=== PATIENT | female | born 1955 | race Caucasian/White ===

== ENCOUNTER 2021-04-27 18:40 | Observation (INO) ==
[~2021-04-27 18:40] MED LIST: WARFARIN 5 MG TABLET PO SCH
[2021-04-27] MEDS ORDERED: IOPAMIDOL 100 ML BOTTLE IV ONE (18:41)
[2021-04-27] MEDS ORDERED: 0.9 % SODIUM CHLORIDE 1,000 ML IV ONE ×2 (19:01→21:57)
[2021-04-27 19:30] LABS: POC Blood Urea Nitrogen 34 mg/dL (6-20); POC CO2 24 mmol/L (22-30); POC Calcium, Ionized 1.18 mmEq/L (1.16-1.32); POC Chloride 97 mEq/L (96-108); POC Creatinine 1.2 mg/dL (0.6-1.2); POC Glucose, Random 115 mg/dL (70-105); POC Hematocrit 35 % (36-48); POC Potassium 5.5 mEql/L (3.3-5.1); POC Sodium 130 mEq/L (133-145)
[2021-04-27 19:58] LABS: Basophils # (Auto) 0.04 K/mcL (0.00-0.30); Basophils % (Auto) 0.3 % (0.0-2.0); Eosinophils % (Auto) 1.3 % (0.0-7.0); Hematocrit 35.8 % (34.1-44.9); Hemoglobin 11.7 g/dL (11.2-15.7); Mean Cell Volume 99.2 fL (80.0-100.0); Mean Corpuscular HGB Conc 32.7 g/dL (31.0-36.0); Mean Platelet Volume 11.1 fL (7.4-10.4); Monocytes # (Auto) 1.56 K/mcL (0.10-0.90); Monocytes % (Auto) 10.4 % (1.0-12.0); Platelet Count 215 K/mcL (140-440); RBC 3.61 M/mcL (3.59-5.38)
[2021-04-27] MEDS ORDERED: cefTRIAXone 1 GM VIAL IV ONE (20:51)
[2021-04-27] MEDS ORDERED: VANCOMYCIN 1,500 MG in 0.9 % SODIUM CHLORIDE 500 ML IV ONE (20:51)
[2021-04-27] MEDS ORDERED: ACETAMINOPHEN 325 MG TABLET PO PRN ×2 (23:15→23:22)
[2021-04-27] MEDS ORDERED: oxyCODONE HCL 5 MG TABLET PO PRN (23:15)
[2021-04-27] MEDS ORDERED: 0.45 % SODIUM CHLORIDE 1,000 ML IV SCH (23:15)
[2021-04-27] MEDS ORDERED: ONDANSETRON 4 MG/2 ML VIAL IV PRN ×2 (23:15→23:22)
[2021-04-27] MEDS ORDERED: FLEETS ADULT ENEMA PR PRN (23:22)
[2021-04-27] MEDS ORDERED: BENZOCAINE/MENTHOL 1 LOZENGE PO PRN (23:22)
[2021-04-27] MEDS ORDERED: HYDROcodone/APAP 10/325MG TABLET PO PRN ×2 (23:22→23:28)
[2021-04-27] MEDS ORDERED: MAGNESIUM HYDROXIDE 30 ML ORAL.SUSP PO PRN (23:22)
[2021-04-27] MEDS ORDERED: HYDROmorphone 1 MG/ML SYRINGE IV PRN (23:22)
[2021-04-27] MEDS ORDERED: BISACODYL 10 MG SUPP.RECT PR PRN (23:22)
[2021-04-27] MEDS ORDERED: TEMAZEPAM 15 MG CAPSULE PO PRN (23:22)
--- NOTE | 2021-04-27 23:24 | Emergency Department Note ---
HPI General Chief complaint: Altered Mental Status Stated complaint: Confusion & anxiety Time Seen by Provider: 04/27/21 18:53 Source: patient and family Mode of arrival: ambulatory Limitations: no limitations History of Present Illness HPI Narrative: Narrative: Patient is a 65-year-old female status post total knee replacement on Saturday who presents with chief complaint of altered mental status/confusion. states that patient was discharged home 2 days ago, and ever since then has just been slowly not acting like herself. She had some shaking episodes, does not appear to be getting up very often or moving around very much, and is getting confused at times. He states this is not normal for her and he is concerned something is going on. Otherwise denies any other significant symptoms such as fever, headache, cough, shortness of breath, chest pain, nausea, vomiting, abdominal pain, changes in bowel movements or urinary symptoms. Patient states that her leg is not bothering her, and denies any complaints at this time. She is alert and oriented x3. Related Data Home Medications Medication Instructions Recorded Confirmed Pro 5 (probiotic) 1 cap PO HS 12/06/14 04/19/21 cholecalciferol (vitamin D3) 125 5,000 unit PO DAILY tab 12/06/14 04/19/21 mcg (5,000 unit) tablet lithium carbonate 300 mg capsule 300 mg PO HS cap 12/06/14 04/19/21 divalproex 125 mg tablet,delayed 250 mg PO DAILY tab 06/17/18 04/27/21 release lorazepam 0.5 mg tablet 0.25 - 0.5 mg PO HS 06/17/18 04/27/21 risperidone 0.25 mg tablet 0.25 - 0.5 mg PO HS tab 06/17/18 04/27/21 digestive enzymes 1 tab PO TID 04/19/21 04/19/21 diphenhydramine HCl 25 mg tablet 25 mg PO DAILYP PRN 04/19/21 04/19/21 gabapentin 300 mg capsule 300 mg PO HS 04/19/21 04/19/21 levothyroxine 50 mcg tablet 50 mcg PO ACB 04/19/21 04/19/21 loratadine 10 mg tablet (Claritin) 10 mg PO DAILY 04/19/21 04/19/21 magnesium citrate 100 mg tablet 150 mg PO DAILYP PRN MDD ] 04/19/21 04/19/21 divalproex 125 mg tablet,delayed 375 mg PO HS 04/27/21 04/27/21 release Previous Rx's Medication Instructions Recorded aspirin 81 mg tablet,delayed 81 mg PO BID #60 tab 04/24/21 release (Ecotrin Low Strength) docusate sodium 100 mg capsule 100 mg PO BID #60 cap 04/24/21 hydrocodone 10 mg-acetaminophen 1 - 2 tab PO Q4H PRN #75 tab 04/24/21 325 mg tablet Allergies Allergy/AdvReac Type Severity Reaction Status Date / Time Celery Allergy Severe Anaphylaxis Verified 04/27/21 18:42 milk Allergy Severe Anaphylaxis Verified 04/27/21 18:42 peanut Allergy Severe Anaphylaxis Verified 04/27/21 18:42 wheat Allergy Severe Anaphylaxis Verified 04/27/21 18:42 gluten Allergy Mild Anaphylaxis Verified 04/27/21 18:42 levofloxacin Allergy Mild Difficulty Verified 04/27/21 18:42 Breathing meperidine [From Demerol] Allergy Mild Other Verified 04/27/21 18:42 aspirin AdvReac Intermediate dyspepsia Verified 04/27/21 18:42 morphine AdvReac Mild Agitated Verified 04/27/21 18:42 Other food allergies Allergy Mild Other Uncoded 04/19/21 10:02 Review of Systems ROS ROS Narrative: Narrative: All systems ED: reviewed and negative except as stated. [facility] Narrative Patient History Narrative: Narrative: Medical/Surgical/Family History All Active Problems (Updated 04/27/21 @ 23:23 by Polo Quinonez DO) Sepsis (Acute) Tachycardia (Acute) Elevated WBC count (Acute) Medicare annual wellness visit, subsequent (Acute) Osteoporosis (Chronic) Bursitis of right hip (Acute) Scleral hemorrhage of left eye (Acute) Fibromyalgia (Chronic) Bipolar disorder (Chronic) Eustachian tube dysfunction (Acute) History of knee replacement procedure of right knee (Chronic) Pain, joint, ankle and foot (Chronic) History of total right knee replacement (Chronic) Trochanteric bursitis, right hip (Chronic) Unilateral primary osteoarthritis, right knee (Chronic) Unilateral primary osteoarthritis, right hip (Chronic) Allergic reaction to chemical substance (Acute) History of tonsillectomy (Chronic) History of lumbar fusion (Chronic) History of colonoscopy (Chronic) History of cholecystectomy (Chronic) History of cataract surgery (Chronic) History of breast biopsy (Chronic) History of appendectomy (Chronic) Closed fracture of wrist (Chronic) Scheuermann's disease (Chronic) Pain in limb (Chronic) Osteoarthritis (Chronic) Obesity (Chronic) Hypothyroidism, acquired (Chronic) Hyponatremia (Chronic) Hypokalemia (Chronic) Hypertension, essential (Chronic) Hyperlipidemia (Chronic) Situational depression (Chronic) Bipolar disorder (Chronic) Allergy (Chronic) Back pain (Chronic) Medical History Allergic reaction to chemical substance Allergy Back pain 2001; Lumbar DDD Bipolar disorder Bipolar disorder Closed fracture of wrist 1967; right wrist Fibromyalgia Hyperlipidemia Hypertension, essential Hypokalemia Hyponatremia Hypothyroidism, acquired Medicare annual wellness visit, subsequent Obesity Osteoarthritis Left knee Osteoporosis Pain in limb 12/14/2013. Dr. Jose Alfredo Merrill; Right Pain, joint, ankle and foot Scheuermann's disease Situational depression Trochanteric bursitis, right hip Unilateral primary osteoarthritis, right hip Unilateral primary osteoarthritis, right knee Surgical History History of appendectomy 07/2013 History of blepharoplasty History of breast biopsy 1994 History of cataract surgery 04/14/2014; Dr. Engel History of cholecystectomy History of colonoscopy 2007 History of knee replacement procedure of right knee History of lumbar fusion 2001; Lumbar spinal fusion History of tonsillectomy History of total right knee replacement 06/27/2016 Family History Mother Alzheimer's disease Malignant neoplasm of colon Iliostomy Transient cerebral ischemia Sister Asthma Aunt Bipolar affective disorder 2 Aunts and 4 Cousins Father Essential hypertension Social History Smoking Status: Never smoker Alcohol Intake Frequency: does not drink Substance Use: does not use Exam Narrative Narrative: Narrative: Patient is laying in bed, answering questions normally and appropriately. She does not appear to be in acute discomfort or distress. She does not appear to be confused. General Limitations: no limitations Head Head: Present atraumatic and normocephalic Eye Eye: Present normal appearance, PERRL and EOMI; Absent scleral icterus or conjunctival injection ENT ENT: Present normal oropharynx and mucous membranes moist Neck Neck: Present full ROM and trachea midline; Absent tenderness or lymphadenopathy Chest Chest: Present symmetric chest wall rise Respiratory Respiratory: Present normal lung sounds bilaterally; Absent respiratory distress, rales/crackles, wheezes, stridor or accessory muscle use Cardiovascular Cardiovascular: Present regular rate and normal rhythm; Absent systolic murmur or diastolic murmur Adbominal Abdominal: Present soft; Absent tenderness, guarding, rebound, rigidity or mass Extremities Extremities: Absent pedal edema, pretibial edema or calf tenderness Expanded Lower Extremity Leg image: 1. Dressing was taken down with some small amount of dried blood on the dressing. Suture device is intact with no signs of wound dehiscence. There is extensive ecchymosis around the knee likely secondary to recent surgery. There is some erythema above the knee concerning for possible cellulitis. No significant tenderness to palpation. Neurovascular intact distally. Back Back: Absent CVA tenderness (R), CVA tenderness (L) or spinous process tenderness Neurological Neurological: Present alert and oriented X3 Psychiatric Psychiatric: Present normal affect and normal mood Skin Skin: Present warm (WNL) and dry Course Vital Signs Vital signs: Vital Signs Temperature 98.0 F 04/27/21 18:42 Pulse Rate 123 H 04/27/21 18:42 Respiratory Rate 18 04/27/21 18:42 Blood Pressure 154/87 04/27/21 18:42 Pulse Oximetry (%) 96 04/27/21 18:42 Temperature 99.1 F H 04/27/21 20:07 Pulse Rate 123 H 04/27/21 23:07 Respiratory Rate 19 04/27/21 22:18 Blood Pressure 137/75 04/27/21 23:01 Pulse Oximetry (%) 97 04/27/21 23:07 [facility] Narrative Medical decision making narrative: Narrative: Patient is a 65-year-old female present with chief complaint of confusion. At this time patient appears to be alert and oriented x3, vital signs initially revealed a tachycardia in the 120s. She subsequently also started develop fevers here in the emergency department as high as 101, making a concern for possible infectious process. She was given 2 L of IV fluids which did not improve her heart rate, and blood work came back with elevation of her white blood count at 15 with a left shift. Urinalysis was unremarkable, chest x-ray nonacute. Her knee does show signs consistent with recent surgery, so it is difficult to fully evaluate for infection. There is a concern that this could be the source of infection given her recent surgery so orthopedic surgery was consulted. Dr. Newman who did the surgery for the patient a few days ago and I discussed the case, and his concern for actual infection was quite low but he came in to evaluate the patient at bedside. He did tap the knee which he stated was unimpressive, but plan to admit the patient for IV fluid hydration and likely dehydration as a cause of her symptoms here today. Patient is agreeable to the plan at this time is no further concerns or questions. Of note due to the concern for possible sepsis blood culture were drawn as well as IV antibiotics started earlier in the course of the hospital visit. Lab Data Result diagrams: 04/27/21 19:18 Labs: Lab Results 04/27/21 04/27/21 Range/Units 19:18 19:18 WBC 15.0 H (4.5-11.0) K/mcL RBC 3.61 (3.59-5.38) M/mcL Hgb 11.7 (11.2-15.7) g/dL Hct 35.8 (34.1-44.9) % POC Hct 35 L (36-48) % MCV 99.2 (80.0-100.0) fL MCH 32.4 (26.0-34.0) pg MCHC 32.7 (31.0-36.0) g/dL RDW 12.0 (11.5-14.5) % Plt Count 215 (140-440) K/mcL MPV 11.1 H (7.4-10.4) fL Neut % (Auto) 80.0 H (38.0-78.0) % Lymph % (Auto) 8.0 L (15.5-49.0) % Kay % (Auto) 10.4 (1.0-12.0) % Eos % (Auto) 1.3 (0.0-7.0) % Baso % (Auto) 0.3 (0.0-2.0) % Lymph # (Auto) 1.20 L (1.50-4.80) K/mcL Kay # (Auto) 1.56 H (0.10-0.90) K/mcL Eos # (Auto) 0.20 (0.00-0.70) K/mcL Baso # (Auto) 0.04 (0.00-0.30) K/mcL Absolute Neutrophils 12.03 H (1.80-8.00) K/mcL POC Sodium 130 L (133-145) mEq/L POC Potassium 5.5 H (3.3-5.1) mEql/L POC Chloride 97 (96-108) mEq/L POC Total CO2 24 (22-30) mmol/L POC BUN 34 H (6-20) mg/dL POC Creatinine 1.2 (0.6-1.2) mg/dL POC Glucose 115 H (70-105) mg/dL POC WB Ioniz Calcium 1.18 (1.16-1.32) mmEq/L ED POC Tests ED POC Tests: MARIE - Influenza A Negative MARIE - Influenza B Negative MARIE - SARS Antigen Negative CC TIME Critical Care Time Critical Care Time: Yes Total Critical Care Time: 60 Discharge Plan Patient/Caregiver Discharge Instructions Pt seen by DIESEL ENGINE SPECIALIST/PA only: No Clinical Impression: Sepsis, Tachycardia, Elevated WBC count Patient Disposition: Xfer As Outpt/Obs ([facility]) Follow up with: Soren Arcos PA-C [Primary Care Provider] - Prescriptions: No Action divalproex 125 mg tablet,delayed release (DR/EC) 250 mg PO DAILY 0RF Label Comments: 250mg qam and 375mg qhs ; Rx Instructions: Takes two Tabs in am 250mg risperidone 0.25 mg tablet 0.25 - 0.5 mg PO HS 0RF lorazepam 0.5 mg tablet 0.25 - 0.5 mg PO HS 0RF cholecalciferol (vitamin D3) 5,000 unit tablet 5,000 unit PO DAILY 0RF Pro 5 (probiotic) 1 cap PO HS 0RF lithium carbonate 300 mg capsule 300 mg PO HS 0RF digestive enzymes Tablet 1 tab PO TID 0RF Rx Instructions: with meals levothyroxine 50 mcg Tablet 50 mcg PO ACB 0RF diphenhydramine HCl 25 mg Tablet 25 mg PO DAILYP PRN (Reason: ANAPHYLACTIC SYMPTOMS) 0RF loratadine [Claritin] 10 mg Tablet 10 mg PO DAILY 0RF magnesium citrate 100 mg Tablet 150 mg PO DAILYP MDD ] PRN (Reason: Constipation) 0RF gabapentin 300 mg capsule 300 mg PO HS 0RF hydrocodone-acetaminophen 10-325 mg tablet 1 - 2 tab PO Q4H PRN (Reason: pain) Qty: 75 0RF aspirin [Ecotrin Low Strength] 81 mg tablet,delayed release (DR/EC) 81 mg PO BID Qty: 60 0RF docusate sodium 100 mg capsule 100 mg PO BID Qty: 60 0RF divalproex 125 mg Tablet,Delayed Release (Dr/Ec) 375 mg PO HS 0RF Rx Instructions: Takes three tabs at night 375mg
--- NOTE | 2021-04-28 00:30 | Consultation ---
DATE OF CONSULTATION: 04/27/2021 EMERGENCY ROOM CONSULTATION The patient had surgery on Saturday of this week, 3 days ago. CHIEF COMPLAINT: She presents with a chief complaint of tremors or shaking, difficulty with ambulation, and some mental status changes, but she is very conversant at this point. She classifies her pain about 5/10, but at times it can be worse, but she is mobile, able to ambulate. She is taking her pain pills, hydrocodone 2 tablets every 4 hours, maximum dose that she can take. REVIEW OF SYSTEMS: She has no chest pain. No shortness of breath. Pain in the knee and tremors. PAST MEDICAL HISTORY: Quite significant for the patient having bipolar disorder with multiple psychotic medications, some of these medications are lithium, Ativan, and Benadryl. She was seen in 07/2019 where her chief complaint was ER visit for tremors at [facility]. At that point, these tremors were intention tremors that seemed to be aggravated with activities. Her other medical problems include fibromyalgia, Scheuermann's disease, osteoarthritis, obesity, hypothyroidism, hyponatremia, chronic hypokalemia, hyperlipidemia, and chronic back pain. PAST SURGICAL HISTORY: Significant for a total knee replacement as of Saturday of this week, 3 days ago. She had a total knee on her other side on 06/27/2016. She had a blepharoplasty, tonsillectomy, lumbar fusion, colonoscopy, cholecystectomy, breast biopsy, and appendectomy. FAMILY HISTORY: Alzheimer's, transient cerebral ischemia, sister had asthma. SOCIAL HISTORY: She does have a sister that is helping her at home. MEDICATIONS: Her medications are noted above. She does take risperidone, lithium is 300 mg once a day, gabapentin, and the Benadryl was noted, recently add is a narcotic and she takes topiramate 25 mg p.o. every day. ALLERGIES: TOO MANY MEDICATIONS. WHEAT, MILK, GLUTEN, AND ASPIRIN. PHYSICAL EXAMINATION: GENERAL: The patient is alert, cooperative, and gives an excellent history. She is shaking, but when she starts talking and really deep thinking, she stops shaking. She has no respiratory distress. Normal respiratory effort and rate. LUNGS: Clear to auscultation bilaterally. CARDIOVASCULAR: Tachy and about 100 with a regular rhythm. No murmurs. NEUROLOGIC: She is shaking. She is alert, cooperative. She moves her feet without difficulty. EXTREMITIES: There is a lot of swelling about the left knee with ecchymosis and bruising consistent with the surgery 3 days ago. PSYCHIATRIC: She appears to be in good condition. IMAGING DATA: She had a CT scan of the chest to rule out PEs and we are waiting for the reading of that. ASSESSMENT: Otherwise, is a total knee arthroplasty 3 days ago with normal bruising. Her laboratories do show a high white count, which are consistent with the above-mentioned surgery. No significant shift that would make me think there are any infections going on. Her low-grade fever consistent with atelectasis. She is dehydrated with a BUN of 37, creatinine is elevated as well. With this, I have encouraged hydration. She is getting 500 mL of normal saline. We will get her to drink and eat, ambulate, and make sure she is able to go home in the morning. I had a long talk with the patient, changing out how she is taking the medications is critical as well. RBH:tho Job ID: [id number] Doc ID: [id number] Jose D Ramos MD
[2021-04-28] MEDS: 0.45 % SODIUM CHLORIDE 1,000 ML IV SCH ×3 (01:00→09:30)
[2021-04-28] MEDS: 0.9 % SODIUM CHLORIDE 10 ML SYRINGE IV SCH ×4 (04:33→13:03)
--- NOTE | 2021-04-28 04:54 | XRay Report ---
CLINICAL INFORMATION: Tachycardia COMPARISON: None. TECHNIQUE: Portable FINDINGS: The heart size, mediastinum and pulmonary vessels are unremarkable. The lungs are clear. There are no effusions. The bones and soft tissues are within normal limits. IMPRESSION: Normal chest. Interpreted and Authenticated by: Roberto Betancourt 04/28/21
--- NOTE | 2021-04-28 05:17 | Cat Scan Report ---
CLINICAL INFORMATION: Postop tachycardia COMPARISON: None. TECHNIQUE: 80ml of Isovue-370 were injected intravenously. Using SmartPrep to maximize pulmonary artery opacification, .625mm helical slices were obtained from the lung apices through the lung bases. Following reconstruction, 2.5 mm sagittal, coronal, and axial reformations were processed. The exam was reviewed at mediastinal, lung, and bone windows. The exam was performed using radiation dose optimization techniques including, but not limited to, automated exposure control, adjustment of the mA and/or kV according to patient size and use of iterative reconstruction technique. FINDINGS: Pulmonary parenchymal windows show a 6 mm subpulmonic lymph node adjacent to the major fissure in the right lower lobe on image 67. There is minor scarring in the medial segment right middle lobe. There are no infiltrates. Pleural spaces are normal. Mediastinal windows show the heart is grossly normal in size and configuration. The pulmonary arteries are normal diameter and well-opacified without evidence of embolus. Thoracic aorta is also normal diameter and well-opacified. There is no adenopathy in the mediastinal, hilar or axillary regions. Esophagus is grossly normal. The thyroid is unremarkable. Bones and soft tissues the chest wall are normal. Images through the superior abdomen are unremarkable. IMPRESSION: Normal CT pulmonary angiogram Interpreted and Authenticated by: Roberto Betacnourt 04/28/21
[2021-04-28] MEDS: KETOROLAC 15 MG/ML VIAL IV SCH ×3 (05:45→12:01)
[2021-04-28] MEDS ORDERED: KETOROLAC 15 MG/ML VIAL ONE (05:46)
[2021-04-28] MEDS ORDERED: LEVOTHYROXINE 50 MCG TABLET PO SCH (07:30)
[2021-04-28] MEDS ORDERED: diphenhydrAMINE 25 MG CAPSULE PO PRN (07:37)
[2021-04-28] MEDS ORDERED: DOCUSATE SODIUM 100 MG CAPSULE PO SCH ×2 (09:00)
[2021-04-28] MEDS ORDERED: NON FORMULARY MEDICATION 1 DOSE MISCELL (Aspirin [Ecotrin Low Strength] 81 mg tablet,delay PO SCH (09:00)
[2021-04-28] MEDS ORDERED: LORATADINE 10 MG TABLET PO SCH (09:00)
[2021-04-28] MEDS ORDERED: VITAMIN D3 5,000 UNIT TABLET PO SCH (09:00)
[2021-04-28] MEDS ORDERED: DIVALPROEX 125 MG CAP.SPRINK PO SCH ×2 (09:00→21:00)
--- NOTE | 2021-04-28 09:04 | Orthopedic Progress Note ---
SUBJECTIVE Subjective Patient information: Note initiated : 04/28/21 at 8:57 am Service Date, if different from initiated Date: [] Patient: Sharon Leal 65 y/o F admitted on 04/27/21 for Confusion & anxiety. Chief Complaint: [alert and oriented and has always been so since my evaluation last night and no cp no sob and no tremor] Principal diagnosis: tremors and anxiety Constitutional Vitals: Vital Signs Temp Pulse Resp BP Pulse Ox 97.6 F 106 H 16 101/58 92 04/28/21 07:24 04/28/21 04:00 04/28/21 07:24 04/28/21 07:24 04/28/21 07:24 Period Temp Pulse Resp BP Sys/Hawkins Pulse Ox Last 24 Hr 97.6 F-99.5 F 106-128 13-20 100-164/56-115 90-99 Intake and Output 04/27/21 04/28/21 04/28/21 21:59 05:59 13:59 Intake Total 1000 2120 Output Total 2900 Balance 1000 -780 Weight 215 lb 212 lb Intake & Output: Intake & Output 04/27/21 04/28/21 04/28/21 21:59 05:59 13:59 Intake Total 1000 2120 Output Total 2900 Balance 1000 -780 Weight 215 lb 212 lb Intake: IV 1000 1500 Sodium Chloride 0.9% 1,000 ml @ 1000 1000 Wide Open IV BOLUS ONE Rx#: [id number] Vancomycin 1,500 mg In Sodium 500 Chloride 0.9% 500 ml @ 333.3 mls/hr IV ONCE ONE Rx#: [id number] Oral 620 Output: Urine Catheter Amount 2900 Other: Urine Appearance Clear Uretheral (Bryant) Clear Clear Urine Color Pale Uretheral (Bryant) Pale Bright Yellow Urine Odor Normal General appearance: average body habitus, cooperative and no acute distress Head Head exam: Present normal inspection Eye Eye exam: Present EOMI Neurological Exam Neurological exam: Present abnormal gait, alert, CN II-XII intact and oriented X3 Expanded Neurological Exam Speech: Present fluid speech Psychiatric Psychiatric exam: Present normal affect OBJ DATA Labs CBC & Chem 7: 04/27/21 19:18 Labs: Abnormal Lab Results 04/27/21 04/27/21 19:18 19:18 WBC 15.0 H POC Hct 35 L MPV 11.1 H Neut % (Auto) 80.0 H Lymph % (Auto) 8.0 L Lymph # (Auto) 1.20 L Norman # (Auto) 1.56 H Absolute Neutrophils 12.03 H POC Sodium 130 L POC Potassium 5.5 H POC BUN 34 H POC Glucose 115 H Meds: Medications Acetaminophen (Acetaminophen 325 Mg Tablet) 650 mg PO Q6HP PRN; Protocol PRN Reason: Per Pain Protocol/Fever > 101 Acetaminophen (Acetaminophen 325 Mg Tablet) 650 mg PO Q6HP PRN; Protocol PRN Reason: Per Pain Protocol/Fever > 101 Hydrocodone Bitart/Acetaminophen (Hydrocodone/Apap 10/325mg Tablet) 1 - 2 tab PO Q4HP PRN; Protocol PRN Reason: Per Pain Protocol Bisacodyl (Bisacodyl 10 Mg Supp.Rect) 10 mg WI Q2-3DAYS PRN PRN Reason: Constipation Diphenhydramine HCl (Diphenhydramine 25 Mg Capsule) 25 mg PO DAILYP PRN PRN Reason: ANAPHYLACTIC SYMPTOMS Divalproex Sodium (Divalproex 125 Mg Cap.Sprink) 375 mg PO HS BE Divalproex Sodium (Divalproex 125 Mg Cap.Sprink) 250 mg PO DAILY BE Docusate Sodium (Docusate Sodium 100 Mg Capsule) 100 mg PO BID BE Gabapentin (Gabapentin 300 Mg Capsule) 300 mg PO HS BE Hydromorphone HCl (Hydromorphone 1 Mg/Ml Syringe) 0.5 - 2 mg IV Q2HP PRN; Protocol PRN Reason: Per Pain Protocol Sodium Chloride (Sodium Chloride 0.45%) 1,000 mls @ 100 mls/hr IV .Q10H [facility] Last Admin: 04/28/21 01:00 Dose: 100 mls/hr Documented by: Ketorolac Tromethamine (Ketorolac 15 Mg/Ml Vial) 15 mg IV Q6 [facility] Stop: 04/29/21 18:01 Last Admin: 04/28/21 05:46 Dose: 15 mg Documented by: Lactobacillus Rhamnosus (Lactobacillus 1 Capsule) 1 cap PO HS BE Levothyroxine Sodium (Levothyroxine 50 Mcg Tablet) 50 mcg PO ACB [facility] Last Admin: 04/28/21 07:53 Dose: 50 mcg Documented by: [place] Carbonate ([place] Carbonate 150 Mg Capsule) 300 mg PO HS BE Loratadine (Loratadine 10 Mg Tablet) 10 mg PO DAILY BE Lorazepam (Lorazepam 0.5 Mg Tablet) 0.25 - 0.5 mg PO HS [facility] Magnesium Hydroxide (Magnesium Hydroxide 30 Ml Oral.Susp) 30 ml PO BIDP PRN PRN Reason: Constipation Non-Formulary Medication (Aspirin [Ecotrin Low Strength]) 81 mg PO BID BE Ondansetron HCl (Ondansetron 4 Mg/2 Ml Vial) 4 mg IV Q4HP PRN; Protocol PRN Reason: Nausea And Vomiting Ondansetron HCl (Ondansetron 4 Mg/2 Ml Vial) 4 mg IV Q4HP PRN PRN Reason: Nausea And Vomiting Oxycodone HCl (Oxycodone Hcl 5 Mg Tablet) 1 - 2 mg PO Q4HP PRN; Protocol PRN Reason: Per Pain Protocol Digestive Enzymes (Tablet) 1 dose PO TID [facility] Risperidone (Risperidone 0.25 Mg Tablet) 0.25 - 0.5 mg PO HS [facility] Sodium Biphosphate/Sodium Phosphate (Fleets Adult Enema) 1 dose WI Q3-4DAYS PRN PRN Reason: Constipation Sodium Chloride (0.9 % Sodium Chloride 10 Ml Syringe) 10 ml IV Q8 [facility] Last Admin: 04/28/21 04:33 Dose: Not Given Documented by: Sodium Chloride (0.9 % Sodium Chloride 10 Ml Syringe) 10 ml IV Q8 [facility] Last Admin: 04/28/21 04:34 Dose: Not Given Documented by: Temazepam (Temazepam 15 Mg Capsule) 15 mg PO HSP PRN PRN Reason: Insomnia Throat Lozenges (Benzocaine/Menthol 1 Lozenge) 1 lozenge PO PRN PRN PRN Reason: Sore Throat Vitamin D (Vitamin D3 5,000 Unit Tablet) 5,000 unit PO DAILY [facility] Warfarin Sodium (Warfarin 5 Mg Tablet) 5 mg PO DAILY@1400 [facility] Last Admin: 04/28/21 04:30 Dose: Not Given Documented by: Impressions Impression: much improved and ambulating well and tremor now stopped A/P Narrative A/P Narrative: dc home and will wait on lithium level and if normal or high adjust accordingly. Time Spent With Patient Time: Total time spent is greater than 50% in coordination of care (as documented) at patient's floor/unit and/or counseling patient: Total time spent with greater than 50% in coordination of care (as documented) at patient's floor/unit and/or counseling patient:: 25 - 35 minutes
[2021-04-28] MEDS ORDERED: ASPIRIN 81 MG TAB.CHEW PO SCH (09:30)
--- NOTE | 2021-04-28 09:40 | EKG ---
[facility] Test Date: 2021-04-27 Pat Name: Sharon Leal Department: ED Room: Gender: Female Motion Study Engineer: [facility] : 1955 Requested By: Polo Quinonez Order Number: [id number] Reading MD: Dalton Hopkins Measurements Intervals [place] Rate: 124 P: 54 VA: 152 QRS: 48 QRSD: 96 T: -2 QT: 342 QTc: 492 Interpretive Statements Sinus tachycardia Inferior infarct, old Electronically Signed On 04-28-2021 9:39:36 PST by Dalton Hopkins /store/M0/[id number]
[2021-04-28 10:41] LABS: Lithium Test 0.6 mmol/L
[2021-04-28] MEDS ORDERED: LACTOBACILLUS 1 CAPSULE PO SCH (21:00)
[2021-04-28] MEDS ORDERED: LITHIUM CARBONATE 150 MG CAPSULE PO SCH (21:00)
[2021-04-28] MEDS ORDERED: LORazepam 0.5 MG TABLET PO SCH (21:00)
[2021-04-28] MEDS ORDERED: risperiDONE 0.25 MG TABLET PO SCH (21:00)
[2021-04-28] MEDS ORDERED: GABAPENTIN 300 MG CAPSULE PO SCH (21:00)
== END 2021-04-28 15:15 | disposition home or self-care (01) ==
LOC: MEDSUR 18:40 → ED 18:40 → MEDSUR 23:47
PROVIDERS: ADMIT Orthopaedic Surgery; ATTEND Orthopaedic Surgery